=== PATIENT | male | born 1955 | race Asian ===

== ENCOUNTER 2022-01-28 10:45 | Day surgery (SDC) | payer OTHER ==
[~2022-01-28] VITALS: Ht 172.7 cm; Wt 68.0 kg
[2022-01-28] MEDS ORDERED: MIDAZOLAM 2 MG/2 ML VIAL ONE ×2 (12:23)
[2022-01-28] MEDS ORDERED: LIDOCAINE 2% 100 MG/5 ML UJET TP ONE (12:23)
[2022-01-28] MEDS ORDERED: fentaNYL citrate 0.05 MG/ML VIAL ONE (12:23)
[2022-01-28] MEDS ORDERED: MIDAZOLAM 2 MG/2 ML VIAL IVP ONE (13:35)
== END 2022-01-28 13:55 | disposition home or self-care (01) ==
LOC: MOR 10:45 → MMU 10:46 → MOR 13:55
PROVIDERS: ATTEND Internal Medicine Gastroenterology
DX: K62.5 Hemorrhage of anus and rectum (principal); K29.70 Gastritis, unspecified, without bleeding; E11.9 Type 2 diabetes mellitus without complications; Z79.899 Other long term (current) drug therapy; Z20.822 Contact with and (suspected) exposure to COVID-19
CPT/HCPCS: 43239; 45330; 82948; 87426; 88305; 88312; 88313; 88342; J2250; J3010